=== PATIENT | male | born 1940 | race Caucasian/White ===

== ENCOUNTER → 2016-12-03 | Outpatient (CLI) | payer MEDICARE, BC | LOC: GMAM 10:40 | PROVIDERS: ATTEND Family Medicine | DX: M10.00 Idiopathic gout, unspecified site (principal) ==

== ENCOUNTER → 2017-06-22 | Outpatient (CLI) | payer MEDICARE, BC | END | disposition home or self-care (01) | LOC: GMAM 10:49 | PROVIDERS: ATTEND Family Medicine | DX: M10.00 Idiopathic gout, unspecified site (principal) ==

== ENCOUNTER → 2017-09-08 | Outpatient (CLI) | payer MEDICARE, BC | LOC: GMAM 17:01 | PROVIDERS: ATTEND Family Medicine | DX: R79.82 Elevated C-reactive protein (CRP) (principal); L02.419 Cutaneous abscess of limb, unspecified; R70.0 Elevated erythrocyte sedimentation rate ==

== ENCOUNTER → 2018-05-03 | Outpatient (CLI) | payer MEDICARE | LOC: GMAM 10:30 | PROVIDERS: ATTEND Family Medicine | DX: R31.21 Asymptomatic microscopic hematuria (principal); M10.00 Idiopathic gout, unspecified site; R31.9 Hematuria, unspecified; I10 Essential (primary) hypertension; Z12.5 Encounter for screening for malignant neoplasm of prostate | CPT/HCPCS: 84550; 87086; G0103 ==

== ENCOUNTER → 2019-01-13 | Outpatient (CLI) | payer MEDICARE ==
--- NOTE | 2019-01-13 12:49 | US ---
EXAM DESCRIPTION: Venous,Lower Extremity LT CLINICAL HISTORY: LOCALIZED EDEMA LEFT LOWER EXTREMITY COMPARISON: None Available. TECHNIQUE: Left lower extremity venous duplex FINDINGS: Doppler evaluation of the left lower extremity deep veins was performed. Normal color flow is seen in the common femoral, superficial femoral, profunda femoral and greater saphenous veins. Normal flow is seen in the popliteal vein and veins below the knee in the calf. Normal venous compressibility and flow augmentation. IMPRESSION: Negative for evidence of deep venous thrombosis on left lower extremity venous Doppler sonogram. Electronically signed by: Lucas Pa MD 01/13/2019 12:46 PM CDT
== END ==
LOC: GMAJS 11:28
PROVIDERS: ATTEND Family Medicine
DX: R60.0 Localized edema (principal)

== ENCOUNTER → 2019-03-10 | Outpatient (CLI) | payer MEDICARE ==
--- NOTE | 2019-03-10 14:22 | CT ---
EXAM DESCRIPTION: Abdomen/Pelvis w/Contrast: Computed Tomography. CLINICAL HISTORY: 78 years Male LOCALIZED EDEMA. Swelling in left lower leg and ankle for 3 months. No left lower extremity DVT. Evaluating for abdominal or pelvic mass compressing IVC or other venous structures. COMPARISON: Duplex ultrasound evaluation of the left lower extremity deep venous system 01/13/2019. TECHNIQUE: Spiral-axial scans at 5 x 5 mm mm intervals through the abdomen and pelvis, after 75 mL Optiray 320 nonionic IV contrast and Gastrografin oral contrast. Coronal and sagittal 2.0 mm reconstructions. Delayed scans, liver through the pelvis. Axial-spiral 5mm. No adverse reactions. Total Exam DLP: 1043.72 mGy-cm. This exam was performed according to our departmental dose-optimization program which includes automated exposure control, adjustment of the mA and/or kV according to patient size and/or use of iterative reconstruction technique; to reduce radiation dose to as low as reasonably achievable (ALARA). FINDINGS: Lung bases and pleura: Negative. Liver, Stomach, Spleen, Adrenal Glands: Heterogeneous density in the liver with long axis of the right lobe 17.3 cm. No focal lesions. Oral contrast in the stomach. And duodenum. Pancreas, Gallbladder, Ducts: Gallbladder visualized. Pancreas unremarkable. Dilated proximal and mid common bile duct. Kidneys and Ureters: Negative. Mesentery: No free fluid or free air. No fatty stranding. Aorta: Moderate atherosclerotic calcification including bilateral proximal renal arteries and proximal SMA. No mass effect on the bilateral external and common iliac veins or the inferior vena cava.. Small Bowel: Contains oral contrast Terminal Ileum/Cecum: Normal caliber of these organs in the appendix. No fatty inflammatory changes. Colon: Contains oral contrast. Minimal fecal matter. Moderate redundancy of the sigmoid colon which is slightly distended with fecal matter and moderate distention of the rectum with gas and fecal material. Pelvic Organs: Prostate gland impressing on the base of the urinary bladder. Dimensions 4.2 x 3.1 cm. Central calcification. No free fluid in the anterior peritoneal reflection. Spine and Bony Pelvis: Moderate spondylosis L4-L5 and L5-S1 with canal and foraminal narrowing. Also in the lower thoracic spine. Abdominal Wall/Back Soft Tissues: Bilateral fatty hernias in the inguinal canals containing no bowel. IMPRESSION: 1. No extrinsic mass affect on the bilateral external iliac veins, common iliac veins, or inferior vena cava. Normal contrast mixing in the inferior vena cava from the renal vein entrance to the right atrium. No peritoneal or retroperitoneal mass. 2. Dilated common bile duct with no dilation of pancreatic duct. Normal size of the gallbladder. Consider right upper quadrant abdominal ultrasound to evaluate the duct. 3. Obstipation of the sigmoid colon which is slightly distended. Minimal enlargement of the liver with fatty infiltration. Spondylosis lumbar spine L4-5 and L5-S1. Correlate for radiculopathy. Mildly enlarged prostate gland impressing on the base of the urinary bladder. Bilateral fatty inguinal hernias not containing bowel. Electronically signed by: German Keita MD 03/10/2019 2:21 PM CDT
== END ==
LOC: CT 08:30
PROVIDERS: ATTEND Family Medicine
DX: R60.0 Localized edema (principal); K59.00 Constipation, unspecified; K76.0 Fatty (change of) liver, not elsewhere classified; K83.8 Other specified diseases of biliary tract; K40.20 Bilateral inguinal hernia, without obstruction or gangrene, not specified as recurrent; N40.0 Benign prostatic hyperplasia without lower urinary tract symptoms; M47.897 Other spondylosis, lumbosacral region

== ENCOUNTER → 2019-11-02 | Outpatient (CLI) | payer MEDICARE | LOC: GMAM 11:31 | PROVIDERS: ATTEND Family Medicine | DX: Z12.5 Encounter for screening for malignant neoplasm of prostate (principal); M10.00 Idiopathic gout, unspecified site; I10 Essential (primary) hypertension; E78.2 Mixed hyperlipidemia | CPT/HCPCS: 84550; G0103 ==

== ENCOUNTER → 2020-07-03 | Outpatient (CLI) | payer MEDICARE | LOC: GMAM 14:16 | PROVIDERS: ATTEND Family Medicine | DX: M10.00 Idiopathic gout, unspecified site (principal); I10 Essential (primary) hypertension; R73.02 Impaired glucose tolerance (oral); E78.2 Mixed hyperlipidemia ==